=== PATIENT | female | born 1980 | race Caucasian/White ===

== ENCOUNTER 2020-10-01 13:55 | Emergency (ER) | payer OTHER ==
[~2020-10-01] VITALS: Ht 180.3 cm; Wt 158.8 kg
[2020-10-01] MEDS ORDERED: STRATTERA25 MG PO (14:08)
[2020-10-01] MEDS ORDERED: SERTRALINE HCL100 MG PO (14:08)
[2020-10-01] MEDS ORDERED: BUSPIRONE HCL10 MG PO (14:08)
[2020-10-01] MEDS ORDERED: AUGMENTIN400 MG/53 PO (14:09)
[2020-10-01] MEDS ORDERED: MECLIZINE HCL25 M1 PO (14:09)
[2020-10-01] MEDS ORDERED: METFORMIN HCL500 M3 PO (14:09)
[2020-10-01] MEDS ORDERED: BUPROPION XL300 MG PO (14:10)
[2020-10-01] MEDS ORDERED: ACYCLOVIR 400400 MG PO (14:10)
[2020-10-01] MEDS ORDERED: TIZANIDINE HCL4 M1 PO (14:10)
[2020-10-01] MEDS ORDERED: ASA81BEC PO (14:11)
[2020-10-01] MEDS ORDERED: VITAMIN B-121000 MC2 PO (14:11)
[2020-10-01] MEDS ORDERED: PNV 29-1 TABLE1 EACH PO (14:12)
--- NOTE | 2020-10-01 14:20 | EKG ---
[place] [address] ELECTROCARDIOGRAM REPORT Name: JACEY SHEPPARD Room: [facility]#: [id number] Admission: Attend Phys: Discharge: Date of : 84 Date of Service: 10/01/201400 Report #: [id number] THIS REPORT FOR: //name// [facility] ED Test Date: 2020-10-01 Test Time: 14:01:59 Pat Name: JACEY SHEPPARD Department: Room: Gender: F Poultry Farmer Meat: CHERELLE : 1980 Requested By: Godfrey Vasquez Order Number: [id number] MD: Sascha Pollard Measurements Intervals [facility] Rate: 100 P: 49 WY: 142 QRS: 15 QRSD: 103 T: 18 QT: 353 QTc: 456 Interpretive Statements Sinus tachycardia Baseline wander in lead(s) V3 No previous ECG available for comparison Electronically Signed On 10-01-2020 14:19:50 CDT by Sascha Pollard [email or web address] <ELECTRONICALLY SIGNED> By: Sascha Pollard MD, [facility] 10/01/20 1419 00 00 Sascha Pollard MD, FACC /EPI
[2020-10-01 14:22] LABS: ABSOLUTE BASOPHILS 0.1 thou/uL (0.0-0.2); ABSOLUTE EOSINOPHILS 0.2 thou/uL (0.0-0.7); ABSOLUTE LYMPHOCYTES 2.9 thou/uL (0.8-5.3); ABSOLUTE MONOCYTES 0.6 thou/uL (0.0-1.2); ABSOLUTE NEUTROPHILS 6.1 thou/uL (1.6-8.1); BASOPHILS 1.3 %; EOSINOPHILS 2.2 %; HEMATOCRIT 43.8 % (37.0-47.0); HEMOGLOBIN 15.2 gm/dL (12.0-15.0); MCH 30.3 pg (26.0-34.0); MCHC 34.7 g/dL (28.0-37.0); MCV 87.3 fL (80.0-100.0); MONOCYTES 5.6 %; NUCLEATED RBCS 0 /100WBC; PLATELET COUNT* 311 thou/uL (150-400); POLYS 61.9 %; RBC 5.01 mil/uL (4.20-5.00); RDW-CV 13.5 % (10.5-14.5); WBC 9.9 thou/uL (4.0-11.0)
[2020-10-01 14:33] LABS: CREATININE 0.8 mg/dL (0.6-1.3); POTASSIUM 3.6 mmol/L (3.5-5.1)
[2020-10-01 14:44] LABS: ALBUMIN 4.1 g/dL (3.4-5.0); MAGNESIUM 1.8 mg/dL (1.8-2.4); TOTAL BILIRUBIN 0.1 mg/dL (<0.1-1.0); TOTAL PROTEIN 7.7 g/dL (6.4-8.2)
[2020-10-01] MEDS ORDERED: HYDROCODON-ACE1 EAC7 PO (15:22)
[2020-10-01 15:34] VITALS: BP 138/77
== END 2020-10-01 15:35 | disposition home or self-care (01) ==
LOC: M.ERS 13:55
PROVIDERS: Emergency Medicine Emergency Medical Services
DX: R07.89 Other chest pain (principal); Z88.5 Allergy status to narcotic agent; Z88.8 Allergy status to other drugs, medicaments and biological substances; Z98.890 Other specified postprocedural states

== ENCOUNTER 2021-01-17 19:45 | Emergency (ER) | payer OTHER ==
[~2021-01-17] VITALS: Ht 180.3 cm; Wt 158.8 kg
[~2021-01-17 19:45] MED LIST: ACYCLOVIR 400400 MG PO; ASA81BEC PO; AUGMENTIN400 MG/53 PO; BUPROPION XL300 MG PO; BUSPIRONE HCL10 MG PO; HYDROCODON-ACE1 EAC7 PO; MECLIZINE HCL25 M1 PO; METFORMIN HCL500 M3 PO; PNV 29-1 TABLE1 EACH PO; SERTRALINE HCL100 MG PO; STRATTERA25 MG PO; TIZANIDINE HCL4 M1 PO; VITAMIN B-121000 MC2 PO
[2021-01-17] MEDS ORDERED: OZEMPIC0.25 MG/0. SQ (19:58)
[2021-01-17] MEDS ORDERED: WELLBUTRIN 100100 MG PO (19:59)
[2021-01-17] MEDS ORDERED: NAPROSYN500 MG PO (20:30)
[2021-01-17] MEDS ORDERED: FLEXERIL PO (20:30)
[2021-01-17] MEDS ORDERED: APAP W/CODEINE1 TA2 PO (20:30)
[2021-01-17 21:20] VITALS: BP 122/68
== END 2021-01-17 21:20 | disposition home or self-care (01) ==
LOC: M.ERS 19:45
DX: S13.9XXA Sprain of joints and ligaments of unspecified parts of neck, initial encounter (principal); Z98.890 Other specified postprocedural states; Z79.899 Other long term (current) drug therapy; Z79.82 Long term (current) use of aspirin; V49.49XA Driver injured in collision with other motor vehicles in traffic accident, initial encounter; Y93.I9 Activity, other involving external motion; Y92.413 State road as the place of occurrence of the external cause; Y99.8 Other external cause status